=== PATIENT | female | born 1960 | race African-American/Black ===

== ENCOUNTER 2019-11-05 15:16 | Emergency (ER) | payer BC, SELFPAY ==
--- NOTE | ~2019-11-05 | XR_ITS ---
EXAMINATION: XR chest 1V portable EXAM DATE: 11/05/2019 15:45 INDICATION: Cough, loss of smell for one week. TECHNIQUE: Portable AP frontal chest x-ray was obtained. There is no prior study for comparison. FINDINGS: No confluent consolidation, pneumothorax or pleural effusion suspected. Cardiomediastinal s ilhouette is normal. There are no osseous abnormalities identified. There are cholecystectomy clips. IMPRESSION: No acute cardiopulmonary findings. Reviewed, dictated and finalized at location A.
[2019-11-05 15:19] VITALS: BP 142/75; PULSE 77; RESP 20; TEMP 37.1; O2SAT 99
--- NOTE | 2019-11-05 15:39 | ED.URI ---
HPI - URI/Sore Throat General Chief Complaint: Upper Respiratory Infection <Ulysses Godfrey PA-C - Last Filed: 11/05/19 16:32> Stated Complaint: cough <GARTH Medley Last Filed: 11/05/19 16:32> Time Seen by Provider: 11/05/19 15:27 <Ulysses Godfrey PA-C - Last Filed: 11/05/19 16:32> Source: patient <Ulysses Godfrey PA-C - Last Filed: 11/05/19 16:32> Mode of arrival: ambulatory <Ulysses Godfrey PA-C - Last Filed: 11/05/19 16:32> Limitations: no limitations <GARTH Medley Last Filed: 11/05/19 16:32> History of Present Illness HPI Narrative: Patient is a 59-year-old female who presents to emergency department for evaluation of 1 week of nonproductive cough with some body aches noting that she has had family members that were positive for COVID she does not live with them but has concern for possible infection patient has some dyspnea with coughing and activity patient was tested for COVID this week and is currently waiting for results. Patient denies vomiting has had some loose stools presents in no distress. Patient has not taken anything for some <Ulysses Godfrey PA-C - Last Filed: 11/05/19 16:32> Related Data Allergies/Adverse Reactions: Allergies Allergy/AdvReac Type Severity Reaction Status Date / Time No Known Allergies Allergy Unverified 11/05/19 17:16 <Ulysses Godfrey PA-C - Last Filed: 11/05/19 16:32> Review of Systems Review of Systems: All systems reviewed & are unremarkable except as noted in HPI and below <Ulysses Godfrey PA-C - Last Filed: 11/05/19 16:32> PMFSH Social History Social History: Social History (Updated 11/05/19 @ 15:41 by Ulysses Godfrey PA-C) Smoking status: Never smoker <GARTH Medley Last Filed: 11/05/19 16:32> Exam Narrative: Exam Narrative: GENERAL: Well-appearing, well-nourished, and in no acute distress. HEAD: Normocephalic, atraumatic. EYES: PERRLA and EOMI. ENT: Nares clear, no rhinorrhea or epistaxis. Mucous membranes moist. CHEST: Clear to auscultation. No respiratory distress. No wheezes rales or rhonchi HEART: Regular rate and rhythm. No murmur heard. Normal peripheral pulses. EXTREMITIES: Normal range of motion. No edema. SKIN: Warm, dry, no rash. NEURO: No focal deficits. Alert and oriented x3. PSYCH: Normal mood and affect. <GARTH Medley Last Filed: 11/05/19 16:32> Course Course Emergency Course: Patient in the room in no distress aware of case findings treatment plan and diagnosis agreeing to follow-up as directed with primary care and to self quarantine until she has received her COVID tests. <Ulysses Godfrey PA-C - Last Filed: 11/05/19 16:32> Vital Signs Vital signs: Vital Signs Temperature 98.7 F 11/05/19 15:19 Pulse Rate 77 11/05/19 15:19 Respiratory Rate 20 11/05/19 15:19 Blood Pressure 142/75 H 11/05/19 15:19 Pulse Oximetry 99 11/05/19 15:19 Temperature 99.3 F 11/05/19 17:17 Pulse Rate 72 11/05/19 17:17 Respiratory Rate 20 11/05/19 17:17 Blood Pressure 119/71 11/05/19 17:17 Pulse Oximetry 100 11/05/19 17:17 <Ulysses Godfrey PA-C - Last Filed: 11/05/19 16:32> Vital Signs Temperature 98.7 F 11/05/19 15:19 Pulse Rate 77 11/05/19 15:19 Respiratory Rate 20 11/05/19 15:19 Blood Pressure 142/75 H 11/05/19 15:19 Pulse Oximetry 99 11/05/19 15:19 Temperature 99.3 F 11/05/19 17:17 Pulse Rate 72 11/05/19 17:17 Respiratory Rate 20 11/05/19 17:17 Blood Pressure 119/71 11/05/19 17:17 Pulse Oximetry 100 11/05/19 17:17 <Laury Howard MD - Last Filed: 11/05/19 18:53> MDM - URI/Sore Throat MDM Narrative Medical decision making narrative: Patient in the room at this time in no distress aware of case findings treatment plan and diagnosis agreeing to follow-up with primary care also given reasons to return advised to self quarantine until she rece
[2019-11-05 16:08] LABS: Basophils Percent Auto 0.6 % (0.2-1.2); Eosinophils Percent Auto 0.6 % (0-4.4); Hematocrit 36.7 % (37.0-47.0); Hemoglobin 11.6 g/dL (12.0-15.0); Immature Granulocyte Absolute 0.01 K/mm3 (0.00-0.031); Immature Granulocyte Percent A 0.3 % (0-0.5); Lymphocytes Absolute Auto 1.63 K/mm3 (0.9-3.2); Lymphocytes Percent Auto 48.5 % (18.3-44.2); Mean Corpuscular HGB Conc 31.6 g/dl (32-36); Mean Corpuscular Hemoglobin 23.8 pg (26-34); Mean Corpuscular Volume 75.4 fl (80-100); Monocytes Absolute Auto 0.3 K/mm3 (0.1-0.6); Neutrophils Absolute Auto 1.4 K/mm3 (1.3-6.7); Platelet Count Result 178 k/mm3 (150-375); Red Blood Count 4.87 M/mm3 (4.2-5.4); Red Cell Distribution Width 15.1 % (11.5-14.5); White Blood Count 3.4 K/mm3 (4.5-10.0)
[2019-11-05 16:24] LABS: Alanine Aminotransferase 51 U/L (4-35); Alkaline Phosphatase 105 U/L (38-126); Anion Gap 11.5 mmol/L (7-16); Aspartate Amino Transferase 43 U/L (14-36); Bilirubin,Total 0.6 mg/dL (0.2-1.3); Blood Urea Nitrogen 15 mg/dL (7-17); Calcium 8.7 mg/dL (8.4-10.2); Carbon Dioxide 25 mmol/L (22-30); Chloride 106 mmol/L (98-107); Estimated CRCL calculation 65 ml/min; Estimated Glomerular Filt Rate > 60; Glucose 95 mg/dL (65-105); Potassium 3.5 mmol/L (3.4-5.0); Sodium 139 mmol/L (137-145)
[2019-11-05 17:17] VITALS: BP 119/71; PULSE 72; RESP 20; TEMP 37.4; O2SAT 100
== END 2019-11-05 17:19 | disposition home or self-care (01) ==
PROVIDERS: Emergency Medicine Emergency Medical Services; Emergency Provider Emergency Medicine; PCP Family Medicine
DX: J06.9 Acute upper respiratory infection, unspecified (principal); Z20.828 Contact with and (suspected) exposure to other viral communicable diseases
CPT/HCPCS: 36415; 71045; 80053; 85025; 99283

== ENCOUNTER 2023-01-30 08:48 | Emergency (ER) | payer BC, SELFPAY ==
--- NOTE | ~2023-01-30 | CT_ITS ---
Non-contrast CT scan of the Abdomen and Pelvis Clinical indication: Right flank pain Technique: 2.5 mm axial scans were obtained through the abdomen and pelvis without intravenous or or al contrast. Dose reduction technique was used on this scan by utilizing automated exposure control a nd iterative reconstruction technique. The dose-length product (DLP) was 396.17 mGy-cm. Findings: Images through the lung bases reveal no abnormalities. There is mild right hydroureteronephrosis. No ureteral stones seen currently. No left hydronephrosis. No left-sided stones seen. The liver, spleen, pancreas, and adrenals appear normal. Cholecystectomy clips are present. There is no aortic aneurysm. There is no evidence of bowel obstruction. Images through the pelvis were performed. There is no evidence of ascites or lymphadenopathy. Urinary bladder demonstrates a 8 mm stone within it. No adnexal mass seen. No ascites. Impression: Mild right hydroureteronephrosis. This is presumably due to recently passed 8 mm stone, which is curr ently within the urinary bladder. No ureteral stones seen currently. No left hydronephrosis. Reviewed, dictated and finalized at location M. Impression: Mild right hydroureteronephrosis. This is presumably due to recently passed 8 m m stone, which is currently within the urinary bladder. No ureteral stones seen currently. No left hydronephrosis.
[2023-01-30 09:43] VITALS: BP 147/69; PULSE 88; RESP 20; TEMP 36.2; O2SAT 100
[2023-01-30 10:02] LABS: Basophils Percent Auto 0.5 % (0.2-1.2); Eosinophils Absolute Auto 0.1 K/mm3 (0-0.3); Eosinophils Percent Auto 1.7 % (0-4.4); Hematocrit 38.1 % (37.0-47.0); Hemoglobin 11.7 g/dL (12.0-15.0); Immature Granulocyte Absolute 0.02 K/mm3 (0.00-0.031); Immature Granulocyte Percent A 0.3 % (0-0.5); Lymphocytes Absolute Auto 1.37 K/mm3 (0.9-3.2); Lymphocytes Percent Auto 20.6 % (18.3-44.2); Mean Corpuscular HGB Conc 30.7 g/dl (32-36); Mean Corpuscular Hemoglobin 23.9 pg (26-34); Mean Corpuscular Volume 77.9 fl (80-100); Mean Platelet Volume 9.8 fl (7.4-10.4); Monocytes Absolute Auto 0.4 K/mm3 (0.1-0.6); Monocytes Percent Auto 5.7 % (2.6-8.5); Neutrophils Absolute Auto 4.7 K/mm3 (1.3-6.7); Neutrophils Percent Auto 71.2 % (45.5-73.1); Platelet Count Result 196 k/mm3 (150-375); Red Blood Count 4.89 M/mm3 (4.2-5.4); Red Cell Distribution Width 15.2 % (11.5-14.5); White Blood Count 6.7 K/mm3 (4.5-10.0)
[2023-01-30 10:05] LABS: Appearance Urine Turbid (Clear); Bacteria Urine None Seen /hpf; Bilirubin Urine Negative (Negative); Blood Urine Negative (Negative); Color Urine Yellow (Yellow); Glucose Urine UA Negative (Negative); Ketones Urine Negative (Negative); Leukocyte Esterase Ur Negative LEU/UL (Negative); Nitrate Urine Negative (Negative); Non Pathogenic Casts 0-2; Protein Urine Trace mg/dL (Negative); Specific Grav Ur 1.019 (1.001-1.035); Squamous Epithelial Cell Urine Occasional /hpf (Few)
[2023-01-30 10:07] LABS: Add Urine Microscopic? YES
[2023-01-30 10:11] LABS: Alanine Aminotransferase 28 U/L (6-35); Albumin Level 3.9 g/dL (3.5-5.1); Alkaline Phosphatase 93 U/L (38-126); Anion Gap 6 mmol/L (8-16); Aspartate Amino Transferase 28 U/L (14-36); Bilirubin,Total 0.6 mg/dL (0.2-1.3); Blood Urea Nitrogen 20 mg/dL (7-17); Calcium 8.9 mg/dL (8.4-10.2); Carbon Dioxide 27 mmol/L (22-30); Chloride 105 mmol/L (98-107); Estimated CRCL calculation 56 ml/min; Estimated Glomerular Filt Rate > 60; Glucose 169 mg/dL (65-110); Lipase 71 U/L (23-300); Potassium 3.5 mmol/L (3.4-5.0); Sodium 138 mmol/L (137-145)
[2023-01-30 11:24] VITALS: BP 127/95; PULSE 81; RESP 20; TEMP 36.6; O2SAT 100
--- NOTE | 2023-01-30 12:09 | ED.ABDPAIN ---
HPI - Abdominal Pain General Chief Complaint: Abdominal Pain Stated Complaint: right lower back pain with abd radiation Time Seen by Provider: 01/30/23 11:16 History of Present Illness HPI narrative: 62-year-old female presented the emergency department for evaluation of right flank pain that radiates to her abdomen. Patient also describes increased urinary frequency. Patient reports that prior to arrival the pain was a 9 out of 10 but since arriving to the ED the pain is significantly improved. Patient reports he does have history of urinary tract infections but patient denies any prior history of kidney stones Related Data Home Medications Medication Instructions Recorded Confirmed atorvastatin 20 mg tablet 20 mg PO DAILY 09/06/22 omeprazole 40 mg capsule,delayed 40 mg PO DAILY 09/06/22 release Allergies Allergy/AdvReac Type Severity Reaction Status Date / Time No Known Allergies Allergy Verified 01/30/23 09:53 Review of Systems Review of Systems: All systems reviewed & are unremarkable except as noted in HPI and below PMFSH Past Medical History Medical History (Updated 01/30/23 @ 17:45 by Yoan Everett MD) Generalized osteoarthritis of multiple sites Inflammatory arthritis Seronegative rheumatoid arthritis of both hands Surgical History Surgical History (Updated 09/06/22 @ 11:26 by Jessica Nino MA) History of cholecystectomy History of removal of cyst knee Family History Family History (Updated 09/06/22 @ 11:27 by Jessica Nino MA) Father Hypertension Other Breast cancer Aunt Pancreatic cancer Uncle Social History Social History (Updated 09/06/22 @ 11:27 by Jessica Nino MA) Smoking status: Never smoker Alcohol intake: never Substance use: never Lack of Transportation: No Lack of Food: Sometimes True Current Housing: I Do Not Have Housing Concerned About Future Housing: No Difficulty Paying Gas/Electric Bills: No Difficulty Paying for Meds: No Currently Unemployed: No Education: High School Diploma/GED Living arrangements: with family Occupation/Education: occupation Gender identity (if verbalized by the patient): Female Sexual Orientation (if Verbalized by the Patient): Straight or Heterosexual Spiritual care concerns: No Agree to blood products: Yes Exam Narrative: APPEARANCE: Well appearing, no pain, no distress, well-nourished. HEAD: normocephalic, atraumatic. EYES: PERRLA/EOMI, conjunctivae clear. NOSE: Normal no drainage NECK: Supple. No adenopathy, no masses. RESPIRATORY: Airway patent, respirations nonlabored. Clear to auscultation bilaterally, no rales, rhonchi, wheezing. CARDIOVASCULAR: Regular rate and rhythm without murmurs rubs or gallops. ABDOMINAL: Soft, nontender, nondistended, normal bowel sounds MUSCULOSKELETAL: Moves all extremities. Strength/ROM intact, No edema, No calf tenderness. NEURO: Alert. Cranial nerves II through XII intact. Grossly intact SKIN: Warm, dry. Normal Color Course Course Emergency Course: 62-year-old female present emergency department for evaluation of right flank pain. CT scan showed that she recently passed an 8 mm ureteral calculi. Patient does have some hydronephrosis. No evidence of urinary tract infection. Patient is afebrile with no leukocytosis and patient has normal kidney function. Patient does feel improved. Patient was updated on the results of her CT scan showing a recently passed kidney stone. Patient was provided outpatient follow-up with urology. Vital Signs Vital signs: Vital Signs Temperature 97.2 F L 01/30/23 09:43 Pulse Rate 88 01/30/23 09:43 Respiratory Rate 20 01/30/23 09:43 Blood Pressure 147/69 H 01/30/23 09:43 Pulse Oximetry 100 01/30/23 09:43 Oxygen Delivery Room Air 01/30/23 09:43 Temperature 97.9 F 01/30/23 11:24 Pulse Rate 80 01/30/23 13:49 Respiratory Rate 20 01/30/23 13:49 Blood Pr
[2023-01-30 13:49] VITALS: BP 125/90; PULSE 80; RESP 20; O2SAT 99
== END 2023-01-30 13:59 | disposition home or self-care (01) ==
PROVIDERS: Emergency Provider Emergency Medicine
DX: N21.0 Calculus in bladder (principal); N13.30 Unspecified hydronephrosis; R10.9 Unspecified abdominal pain
CPT/HCPCS: 36415; 74176; 80053; 81001; 81025; 83690; 85025; 87086; 87088; 99284

== ENCOUNTER 2024-02-10 13:42 | Emergency (ER) | payer BC, SELFPAY ==
--- NOTE | 2024-02-10 13:47 | ED.BACK ---
HPI - Back Pain/Injury General Chief Complaint: Back Pain/Injury Stated Complaint: pain lower back/buttock right side Time Seen by Provider: 02/10/24 13:47 Source: patient Mode of arrival: ambulatory Limitations: no limitations History of Present Illness HPI Narrative: Patient is a 63-year-old female who presents with 3 days of right low back pain radiating into the right buttocks. Patient states she has had this pain in the past but it normally does not last this long. Patient states she bends over frequently for work. Has history of kidney stone but states this does not feel the same. Denies any fever, chills, urinary changes, nausea, vomiting, diarrhea. Related Data Home Medications Medication Instructions Recorded Confirmed atorvastatin 20 mg tablet 20 mg PO DAILY 09/06/22 omeprazole 40 mg capsule,delayed 40 mg PO DAILY 09/06/22 release Allergies Allergy/AdvReac Type Severity Reaction Status Date / Time No Known Allergies Allergy Verified 01/30/23 09:53 Review of Systems Review of Systems: All systems reviewed & are unremarkable except as noted in HPI and below Constitutional: Constitutional: Denies body ache(s), Denies chills, Denies fatigue, Denies fever(s), Denies headache(s), Denies malaise and Denies weakness Eyes: Eyes: Denies blurry vision, Denies irritation and Denies loss of vision ENT: Denies otalgia, Denies headache(s), Denies nasal discharge, Denies sinus pain and Denies sore throat Cardiovascular: Cardiovascular: Denies chest pain, Denies irregular heart rhythm and Denies dyspnea Respiratory: Respiratory: Denies dyspnea Gastrointestinal: Gastrointestinal: Denies abdominal pain, Denies melena, Denies hematochezia, Denies diarrhea, Denies nausea and Denies vomiting Musculoskeletal: Musculoskeletal: Reports back pain, Denies myalgias and Denies arthralgias Integumentary/Breasts: Skin/Breast: Denies pruritus and Denies rash Neurologic: Denies headache(s), Denies loss of vision and Denies weakness Psychiatric: Psychiatric: Reports no additional psychiatric complaints Endocrine: Endocrine: Denies fatigue PMFSH Past Medical History Medical History Generalized osteoarthritis of multiple sites Inflammatory arthritis Seronegative rheumatoid arthritis of both hands Surgical History Surgical History History of cholecystectomy History of removal of cyst knee Family History Family History Father Hypertension Other Breast cancer Aunt Pancreatic cancer Uncle Social History Social History Smoking status: Never smoker Alcohol intake: never Substance use: never Lack of Transportation: No Lack of Food: Sometimes True Current Housing: I Do Not Have Housing Concerned About Future Housing: No Difficulty Paying Gas/Electric Bills: No Difficulty Paying for Meds: No Currently Unemployed: No Education: High School Diploma/GED Living arrangements: with family Occupation/Education: occupation Gender identity (if verbalized by the patient): Female Sexual Orientation (if Verbalized by the Patient): Straight or Heterosexual Spiritual care concerns: No Agree to blood products: Yes Comments At time of signature, agree with nursing past medical, surgical, social and family history. There is no relevant family history pertinent to the presenting complaint. Exam Const: General: cooperative, healthy appearing, comfortable, no acute distress and well nourished Nutritional Appearance: well nourished Orientation/consciousness: patient oriented x3 Limitations: no limitations HENMT: Head: normal to inspection, normocephalic and atraumatic Ears: hearing grossly normal bilaterally and external ears normal Face/Nose/Sinus: Normal external nose present, normal facial exam and face symmetric Face and sinus: normal facial exam and face symmetric Mouth: Yes lip normal Eyes: General: appearance normal, both eyes and all related structures Alignment and Position: alignment normal and position normal Periorbital: periorbital findings normal Eyelids: eyelids normal Pupils: Equal, round and reactive pupils present EOM: EOMs intact bilaterally Neck: Neck: normal visual inspection, full ROM and supple Chest: Chest palpation & inspection: normal inspection of the chest Resp: Effort & Inspection: normal respiratory effort and able to speak in complete sentences Auscultation: clear to auscultation bilaterally Cardio: Rate: regular rate Rhythm: regular rhythm Heart sounds: S1 normal heart sound present and S2 normal heart sound present GI: Inspection: normal to inspection Back/Spine/Pelvis: Thoracic/Lumbar Spine: paraspinal muscle tenderness on the right in the lower lumbar, thoraco-lumbar spasm on the right, No thoracic spinal tenderness, No lumbar spinal tenderness and straight leg raise positive Skin: General skin exam: normal color and no rashes or lesions noted Neuro: General: patient oriented x3 and moves all extremities Cranial nerves: Yes Equal, round and reactive pupils present Speech: normal speech Gait exam (Neuro): Normal gait present Extrem: General: normal to inspection, full ROM and no edema Psych: Appearance: grossly normal and well kempt Mental Status: mental status grossly normal Speech and movement: Normal speech and movement present Affect: normal affect Attitude: cooperative Thought process: Normal thought process present Course Course Emergency Course: Patient is aware of diagnosis, understands and agrees to treatment plan. Anticipatory guidance given. Patient agrees to follow-up as directed and is aware of reasons to seek care at the emergency department. Portions of this record may have been created with voice recognition software Level of Care: Express Care Visit Vital Signs Vital signs: Reviewed MDM - Back Pain/Injury MDM Narrative Medical decision making narrative: Exam findings show no acute concerns or changes; patient is non-toxic appearing and is in no distress.? Patient is appropriate for outpatient treatment and follow-up. Discharge instructions reviewed with patient, as well as provided in writing per nursing staff. The instructions also include specific and strict return/GO TO THE ER as well as f/u information. All questions have been answered, and the patient deny any further questions with discharge and discharge plan. Differential Diagnosis Differential diagnosis: Likely lumbar radiculopathy, sciatica, strain of lumbar region, renal colic and pyelonephritis Medical Records Attestation: I reviewed the patient's medical records. Discharge Plan Discharge Clinical Impression: Sciatica Qualifiers: Laterality: right Qualified Code(s): M54.31 - Sciatica, right side Patient Disposition: Home, Self-Care Condition: Stable Instructions: Sciatica (ED) Additional Instructions: Please follow up with your Primary Care Doctor within 48-72 hours - call for an appointment. Walking and other gentle exercising several times a week has been shown to improve back pain; bed rest is not recommended. Take steroids in the morning with food, take muscle relaxers every 8 hours as needed for muscle spasm. do not drive or make any important decisions while on this medication for it can make you drowsy. You may apply heat or cold to the area as needed. Contact your doctor or go to the emergency department if you develop problems with bladder or bowel function, weakness or loss of feeling in one or both of your legs, or any other serious concerns. Prescriptions: New prednisone 20 mg tablet 40 mg PO DAILY 5 Days Qty: 10 0RF baclofen 10 mg tablet 10 mg PO TID 5 Days Qty: 15 0RF lidocaine 5 % adhesive patch,medicated 1 patch topical DAILY Qty: 15 0RF Rx Instructions: leave on most painful area for up to 12 hrs No Action hydroxychloroquine [Plaquenil] 200 mg tablet 400 mg PO DAILY Qty: 180 1RF atorvastatin 20 mg tablet 20 mg PO DAILY omeprazole 40 mg capsule,delayed release(DR/EC) 40 mg PO DAILY Follow-up/Referrals: [facility] [Primary Care Provider] - 3 Days Stand Alone Forms: Work/School Release IP Time of Disposition: 14:30
[2024-02-10 13:54] VITALS: BP 124/65; PULSE 67; RESP 16; TEMP 36.6; O2SAT 100
== END 2024-02-10 14:39 | disposition home or self-care (01) ==
PROVIDERS: Emergency Provider Nurse Practitioner Family
DX: M54.31 Sciatica, right side (principal); M15.9 Polyosteoarthritis, unspecified; M06.042 Rheumatoid arthritis without rheumatoid factor, left hand; M06.041 Rheumatoid arthritis without rheumatoid factor, right hand
CPT/HCPCS: 99213; G0463